=== PATIENT | female | born 1960 | race Caucasian/White ===

== ENCOUNTER → 2017-01-13 | Outpatient (CLI) | payer OTHER | LOC: MC.RAD 14:58 | DX: Z12.31 Encounter for screening mammogram for malignant neoplasm of breast (principal) ==

== ENCOUNTER → 2018-01-15 | Outpatient (CLI) | payer BC | LOC: MC.RAD 09:57 | DX: Z12.31 Encounter for screening mammogram for malignant neoplasm of breast (principal) ==

== ENCOUNTER 2018-06-20 09:00 | Outpatient (RCR) | payer BC | END 2018-07-03 | disposition home or self-care (01) | LOC: MKS.ESL.PT | DX: M47.817 Spondylosis without myelopathy or radiculopathy, lumbosacral region (principal); G62.9 Polyneuropathy, unspecified; M53.3 Sacrococcygeal disorders, not elsewhere classified; G89.29 Other chronic pain ==

== ENCOUNTER → 2018-06-27 | Outpatient (CLI) | payer BC | LOC: MHCPAIN 08:56 | DX: G89.29 Other chronic pain (principal); M47.817 Spondylosis without myelopathy or radiculopathy, lumbosacral region; M53.3 Sacrococcygeal disorders, not elsewhere classified | CPT/HCPCS: G0463 ==

== ENCOUNTER 2019-06-06 15:52 | Emergency (ER) | payer BC ==
[~2019-06-06] VITALS: Ht 170.2 cm; Wt 63.6 kg
[2019-06-06] MEDS ORDERED: MULTI VITAMINS1 TAB PO (16:14)
[2019-06-06] MEDS ORDERED: NATURAL MAGNES200 MG PO (16:14)
[2019-06-06] MEDS ORDERED: HCTZ12.5TAB PO (16:15)
[2019-06-06] MEDS ORDERED: LIPITOR 40MG TA40 MG PO (16:15)
[2019-06-06 18:19] VITALS: BP 135/86; PULSE 86; TEMP 98.2
== END 2019-06-06 18:15 | disposition home or self-care (01) ==
LOC: COL.ER 15:52
DX: K59.00 Constipation, unspecified (principal); I10 Essential (primary) hypertension; E78.5 Hyperlipidemia, unspecified; F17.210 Nicotine dependence, cigarettes, uncomplicated